=== PATIENT | male | born 1990 | race Two or more races ===

== ENCOUNTER 2019-05-15 00:23 | Observation (INO) | payer SELFPAY ==
[~2019-05-15] VITALS: Ht 167.6 cm; Wt 98.9 kg
[2019-05-15] MEDS ORDERED: methylPREDNISolone SOD SUCC PF 125 MG/2 ML VIAL. IV ONE (01:00)
[2019-05-15] MEDS ORDERED: diphenhydrAMINE 50 MG/ML VIAL IVP ONE (01:00)
[2019-05-15] MEDS ORDERED: FAMOTIDINE 20 MG/2 ML VIAL IVP ONE (01:00)
--- NOTE | 2019-05-15 01:21 | PHYS DOC ---
Past Medical History Past Medical History: No Pertinent History Past Surgical History: No Surgical History Alcohol Use: Occasionally Drug Use: Marijuana Adult General Chief Complaint Chief Complaint: FACE PROBLEM HPI HPI 28-year-old male presents to the emergency department with complaints of swelling lips. Patient states this is happened before, usually happens after eating pork. Patient subsequent had pork chop tonight and had development of angioedema appreciated to his upper and lower lips. Oral mucosa itself is unremarkable with regards to swelling, patient denies any shortness of breath, nausea, vomiting, chest pain. He does however have significant swelling appreciated to his upper lips and lower lips. Patient states he took some Claritin at home however had no relief. Review of Systems Review of Systems Constitutional: Denies fever or chills [] Eyes: Denies change in visual acuity, redness, or eye pain [] Respiratory: Denies cough or shortness of breath [] Cardiovascular: No additional information not addressed in HPI [] GI: Denies abdominal pain, nausea, vomiting, bloody stools or diarrhea [] Musculoskeletal: Denies back pain or joint pain [] Integument: Denies rash or skin lesions [] All other systems were reviewed and found to be within normal limits, except as documented in this note. Current Medications Current Medications Current Medications Medications (Trade) Dose Ordered Sig/Vicky Start Time Stop Time Status Last Admin Dose Admin Diphenhydramine HCl (Benadryl) 50 mg 1X ONCE 05/15/19 01:00 05/15/19 01:01 DC 05/15/19 00:53 50 MG Famotidine (Pepcid Vial) 20 mg 1X ONCE 05/15/19 01:00 05/15/19 01:01 DC 05/15/19 00:53 20 MG Methylprednisolone Sodium Succinate (SOLU-Medrol 125MG VIAL) 125 mg 1X ONCE 05/15/19 01:00 05/15/19 01:01 DC 05/15/19 00:52 125 MG Allergies Allergies Allergies Coded Allergies Type Severity Reaction Last Updated Verified Penicillins Allergy Intermediate 05/15/19 Yes Physical Exam Physical Exam Constitutional: Well developed, well nourished, no acute distress, non-toxic appearance. [] HENT: Normocephalic, atraumatic, bilateral external ears normal, oropharynx moist, no oropharynx swelling, obvious swelling to upper/lower lips, no oral exudates, nose normal. [] Eyes: PERRLA, EOMI, conjunctiva normal, no discharge. [] Neck: Normal range of motion, no tenderness, supple, no stridor. [] Cardiovascular:Heart rate regular rhythm, no murmur [] Lungs & Thorax: Bilateral breath sounds clear to auscultation [] Abdomen: Bowel sounds normal, soft, no tenderness, no masses, no pulsatile masses. [] Skin: Warm, dry, no erythema, no rash. [] Extremities: No tenderness, no edema. [] Neurologic: Alert and oriented X 3, no focal deficits noted. [] Psychologic: Affect normal, judgement normal, mood normal. [] Current Patient Data Vital Signs Vital Signs Date Time Temp Pulse Resp B/P (MAP) Pulse Ox O2 Delivery O2 Flow Rate FiO2 05/15/19 00:39 98.2 76 16 148/92 (110) 99 Room Air 98.2 EKG EKG [] Radiology/Procedures Radiology/Procedures [] Course & Med Decision Making Course & Med Decision Making Pertinent Labs and Imaging studies reviewed. (See chart for details) []28-year-old male presents to the emergency department with complaints of swelling lips. Patient states this is happened before, usually happens after eating pork. Patient subsequent had pork chop tonight and had development of angioedema appreciated to his upper and lower lips. Oral mucosa itself is unremarkable with regards to swelling, patient denies any shortness of breath, nausea, vomiting, chest pain. He does however have significant swelling appreciated to his upper lips and lower lips. Patient states he took some Claritin at home however had no relief. Solumedrol/pepcid/Benadryl given IV Patient with continued swelling despite medications Given concern for airway will plan for admit Discussed admit with patient and observation AM labs ordered Dragon Disclaimer Dragon Disclaimer This electronic medical record was generated, in whole or in part, using a voice recognition dictation system. Departure Departure Impression: Primary Impression: Angio-edema Disposition: ADMITTED INPATIENT Admitting Physician: SHANNAN Condition: STABLE Problem Qualifiers Primary Impression: Angio-edema Encounter type: initial encounter Qualified Codes: T78.3XXA - Angioneurotic edema, initial encounter RODOLFO CLAYTON MD May 15, 2019 01:21
[2019-05-15] MEDS ORDERED: ONDANSETRON PF 4 MG/2 ML VIAL. IV PRN (01:30)
[2019-05-15] MEDS ORDERED: ACETAMINOPHEN 325 MG TABLET. PO PRN (01:30)
[2019-05-15 07:47] VITALS: BP 133/89
[2019-05-15 10:53] VITALS: BP 129/92
[2019-05-15] MEDS: diphenhydrAMINE HCL 25 MG CAPSULE PO PRN ×2 (11:13→21:16)
[2019-05-15] MEDS: FAMOTIDINE 20 MG TABLET. PO SCH ×2 (11:13→21:14)
[2019-05-15] MEDS: methylPREDNISolone SOD SUCC PF 40 MG/ML VIAL. IV SCH ×2 (11:14→21:14)
--- NOTE | 2019-05-15 11:58 | HP ---
ADMIT DATE: 05/15/2019 CHIEF COMPLAINT: Swollen lips. HISTORY OF PRESENT ILLNESS: The patient is a pleasant 28-year-old male who thinks he is ALLERGIC TO PORK. Sure enough, he presented with angioedema. He rates this as 7/10. It is worse with food, better with no food. Has associated anxiety. This has been occurring for about a day. We placed him on steroids, Pepcid and Benadryl. He is now being examined on the medical floor where his symptoms are starting to resolve a little bit. I plan to continue the therapy. PAST MEDICAL HISTORY: None. ALLERGIES: PENICILLIN. FAMILY HISTORY: Diabetes and angioedema. SOCIAL HISTORY: Does not drink, smoke or take drugs. He is . MEDICATIONS: Reviewed. REVIEW OF SYSTEMS: GENERAL: No history of weight change, weakness or fevers. He complains of swollen lips. SKIN: No bruising, hair changes or rashes. EYES: No blurred, double or loss of vision. NOSE AND THROAT: No history of nosebleeds, hoarseness or sore throat. HEART: No history of palpitations, chest pain or shortness of breath on exertion. LUNGS: Denies cough, hemoptysis, wheezing or shortness of breath. GASTROINTESTINAL: Denies changes in appetite, nausea, vomiting, diarrhea or constipation. GENITOURINARY: No history of frequency, urgency, hesitancy or nocturia. NEUROLOGIC: Denies history of numbness, tingling, tremor or weakness. PSYCHIATRIC: No history of panic, anxiety or depression. ENDOCRINE: No history of heat or cold intolerance, polyuria or polydipsia. EXTREMITIES: Denies muscle weakness, joint pain, pain on walking or stiffness. PHYSICAL EXAMINATION: VITALS: Within normal limits and are stable. GENERAL: No apparent distress. Alert and oriented. HEENT: He has swollen lips. EYES: Extraocular muscles are intact, pupils are equally round and reactive to light and accommodation MUSCULOSKELETAL: Well developed, well nourished, good range of motion ENDOCRINE: No thyromegaly was palpated LYMPHATICS: No cervical chain or axillary nodes were noted HEMATOPOIETIC: No bruising NECK: Supple, no JVD, no thyromegaly was noted. LUNGS: Clear to auscultation in all lung bolanos without rhonchi or wheezing. HEART: RRR, S1, S2 present. Peripheral pulses intact, no obvious murmurs were noted. ABDOMEN: Soft, nontender. Positive bowel sounds no organomegaly, normal bowel sounds. EXTREMITIES: Without any cyanosis, clubbing, or edema. Pedal pulses intact, Homans sign is negative. NEUROLOGIC: Normal speech, normal tone. A & O x3, moves all extremities, no obvious focal deficits. PSYCHIATRIC: Normal affect, normal mood. Stable. SKIN: No ulcerations or rashes, good skin turgor, no jaundice. VASCULAR: Good capillary refill, neurovascular bundle appears to be intact. ASSESSMENT AND PLAN: Angioedema. We will treat with IV Solu-Medrol, IV Pepcid, IV diphenhydramine and monitor him closely. SAROJ HOBBS DO DR: ROBB/maryann JOB#: [id number] / [id number]
--- NOTE | 2019-05-15 13:00 | NUR ---
MIRIAM following for discharge planning. Discussed with RN, pt lives at home. Possible dc home today pending swelling progress. Pt is also self pay and HCFS to follow.
[2019-05-15 19:00] VITALS: BP 114/68
[2019-05-15 23:35] VITALS: BP 105/66
[2019-05-16 03:00] VITALS: BP 109/62
[2019-05-16 04:52] LABS: BASO % 0 % (0-3); EOS % 0 % (0-3); HEMATOCRIT 44.6 % (39.0-53.0); HEMOGLOBIN 15.1 g/dL (13.0-17.5); LYMPH # 1.2 x10^3/uL (1.0-4.8); LYMPH % 11 % (24-48); MEAN CORPUSCULAR HEMOGLOBIN 30 pg (25-35); MEAN CORPUSCULAR HGB CONC 34 g/dL (31-37); MEAN CORPUSCULAR VOLUME 87 fL (79-100); MONO # 0.4 x10^3/uL (0.0-1.1); MONO % 3 % (0-9); NEUT % 86 % (31-73); PLATELET COUNT 283 x10^3/uL (140-400); RED BLOOD COUNT 5.11 x10^6/uL (4.30-5.70); RED CELL DISTRIBUTION WIDTH 12.6 % (11.5-14.5); WHITE BLOOD COUNT 11.6 x10^3/uL (4.0-11.0)
[2019-05-16 05:07] LABS: ALBUMIN/GLOBULIN RATIO 0.9 (1.0-1.7); CALCIUM 9.2 mg/dL (8.5-10.1); CREATININE 0.8 mg/dL (0.7-1.3); POTASSIUM 4.1 mmol/L (3.5-5.1); TOTAL BILIRUBIN 0.3 mg/dL (0.2-1.0); TOTAL PROTEIN 8.4 g/dL (6.4-8.2)
[2019-05-16 07:00] VITALS: BP 112/77
[2019-05-16] MEDS: FAMOTIDINE 20 MG TABLET. PO SCH (09:00)
[2019-05-16] MEDS: methylPREDNISolone SOD SUCC PF 40 MG/ML VIAL. IV SCH (09:00)
--- NOTE | 2019-05-16 09:34 | PDOC ---
[facility] PROGRESS NOTE Chief Complaint Chief Complaint Swelling History of Present Illness History of Present Illness 05/16 Pt seen and examined Pt resting comfortably Swelling of the lips improved, pt wants to go home Vitals/I&O Vitals/I&O: Vital Signs Date Time Temp Pulse Resp B/P (MAP) Pulse Ox O2 Delivery O2 Flow Rate FiO2 05/16/19 07:00 98.1 79 18 112/77 (89) 94 Room Air 98.1 I & O 05/15/19 05/15/19 05/16/19 15:00 23:00 07:00 Intake Total 250 ml 750 ml 1040 ml Balance 250 ml 750 ml 1040 ml Physical Exam General: Alert, Oriented X3, Cooperative Heart: Regular rate, Normal S1, Normal S2 Lungs: Clear Abdomen: Soft, No tenderness Extremities: No clubbing, No cyanosis Skin: No rashes, No breakdown Labs Labs: Laboratory Tests Test 05/16/19 04:10 White Blood Count 11.6 x10^3/uL (4.0-11.0) Red Blood Count 5.11 x10^6/uL (4.30-5.70) Hemoglobin 15.1 g/dL (13.0-17.5) Hematocrit 44.6 % (39.0-53.0) Mean Corpuscular Volume 87 fL (79-100) Mean Corpuscular Hemoglobin 30 pg (25-35) Mean Corpuscular Hemoglobin Concent 34 g/dL (31-37) Red Cell Distribution Width 12.6 % (11.5-14.5) Platelet Count 283 x10^3/uL (140-400) Neutrophils (%) (Auto) 86 % (31-73) Lymphocytes (%) (Auto) 11 % (24-48) Monocytes (%) (Auto) 3 % (0-9) Eosinophils (%) (Auto) 0 % (0-3) Basophils (%) (Auto) 0 % (0-3) Neutrophils # (Auto) 10.0 x10^3/uL (1.8-7.7) Lymphocytes # (Auto) 1.2 x10^3/uL (1.0-4.8) Monocytes # (Auto) 0.4 x10^3/uL (0.0-1.1) Eosinophils # (Auto) 0.0 x10^3/uL (0.0-0.7) Basophils # (Auto) 0.0 x10^3/uL (0.0-0.2) Sodium Level 137 mmol/L (136-145) Potassium Level 4.1 mmol/L (3.5-5.1) Chloride Level 102 mmol/L (98-107) Carbon Dioxide Level 25 mmol/L (21-32) Anion Gap 10 (6-14) Blood Urea Nitrogen 15 mg/dL (8-26) Creatinine 0.8 mg/dL (0.7-1.3) Estimated GFR (Cockcroft-Gault) 116.0 BUN/Creatinine Ratio 19 (6-20) Glucose Level 160 mg/dL (70-99) Calcium Level 9.2 mg/dL (8.5-10.1) Total Bilirubin 0.3 mg/dL (0.2-1.0) Aspartate Amino Transf (AST/SGOT) 14 U/L (15-37) Alanine Aminotransferase (ALT/SGPT) 25 U/L (16-63) Alkaline Phosphatase 86 U/L (46-116) Total Protein 8.4 g/dL (6.4-8.2) Albumin 4.0 g/dL (3.4-5.0) Albumin/Globulin Ratio 0.9 (1.0-1.7) Review of Systems Review of Systems: No CP, SOB Assessment and Plan Assessmemt and Plan Problems Medical Problems: (1) Angio-edema Status: Acute Assessment Angioedema Plan HM PT/OT Steroids Benadryl Labs Full diet DVT prophylaxis DC home today Comment Review of Relevant I have reviewed the following items renetta (where applicable) has been applied. Medications: Current Medications Medications (Trade) Dose Ordered Sig/Vicky Route PRN Reason Start Time Stop Time Status Last Admin Dose Admin Methylprednisolone Sodium Succinate (SOLU-Medrol 40MG VIAL) 60 mg Q12HR IV 05/15/19 12:00 05/15/19 21:14 Famotidine (Pepcid) 20 mg BID PO 05/15/19 12:00 05/15/19 21:14 Diphenhydramine HCl (Benadryl) 25 mg Q8HRS PRN PO ITCHING 05/15/19 10:30 05/15/19 21:16 SAROJ HOBBS III DO May 16, 2019 09:34
[2019-05-16 11:00] VITALS: BP 108/58
[2019-05-16 12:02] LABS: % BANDS 25 % (0-9); % LYMPHS 7 % (24-48); % MONOS 3 % (0-10); % SEGS 65 % (35-66)
[2019-05-16 12:03] LABS: PLT ESTIMATE ADEQUATE (ADEQUATE)
--- NOTE | 2019-05-16 13:30 | NUR ---
Patient was discharged home. Discharge planning and prescriptions given to pt and family. IV remove by DANILO Mccarthy. Pt walked out of hospital with transportation provided by family.
--- NOTE | 2019-05-18 23:05 | DS ---
DATE OF DISCHARGE: 05/16/2019 ADMISSION DIAGNOSIS: Angioedema. DISCHARGE DIAGNOSIS: Resolving angioedema. HOSPITAL COURSE: The patient is a pleasant 28-year-old male who presented with angioedema secondary to eating pork. We gave him steroids, Benadryl and Pepcid. In 48 hours, he returned to his baseline. We discharged to home on Medrol Dosepak. DISPOSITION: Home. ACTIVITY: As tolerated. DIET: Low sodium. MEDICATIONS: Please see MRAD. TOTAL TIME: 33 minutes. SAROJ HOBBS DO DR: ROBB/maryann JOB#: [id number] / [id number]
== END 2019-05-16 12:30 | disposition home or self-care (01) ==
LOC: ER 00:23 → 6 SOUTH 01:21
PROVIDERS: ADMIT Internal Medicine; ATTEND Internal Medicine
DX: T78.3XXA Angioneurotic edema, initial encounter (principal); F41.9 Anxiety disorder, unspecified
CPT/HCPCS: 36415; 80053; 85007; 85025; 96374; 96375; 96376; 99284; G0378; J1200; J2920; J2930; J3490; Q0163; G0379

== ENCOUNTER 2021-05-15 20:15 | Emergency (ER) | payer SELFPAY ==
[~2021-05-15] VITALS: Ht 182.9 cm; Wt 100.0 kg
[2021-05-15] MEDS ORDERED: MORPHINE SULFATE 2 MG/ML INJ. IV/SQ PRN (20:45)
--- NOTE | 2021-05-15 20:53 | PHYS DOC ---
Past Medical History Past Medical History: No Pertinent History Past Surgical History: No Surgical History Smoking Status: Never Smoker Alcohol Use: Occasionally Drug Use: Marijuana General Adult EDM: Chief Complaint: BACK PAIN OR INJURY HPI: HPI: Patient is a 30 year old male with no significant medical history who presents today complaining of a sharp 7 out of 10 mid back pain radiating to his chest, symptoms began today. He states he bent down this morning to pepper picker a shirt, and heard a pop from his mid back. He states since then he has not felt normal. Denies any shortness of breath. Denies any fever. Reports pain is worse on deep breaths. He states he tried cupping with no relief to his pain. Review of Systems: Review of Systems: Constitutional: Denies fever or chills. [] Eyes: Denies change in visual acuity. [] HENT: Denies nasal congestion or sore throat. [] Respiratory: Denies cough or shortness of breath. [] Cardiovascular: Reports back pain radiating to the chest GI: Denies abdominal pain, nausea, vomiting, bloody stools or diarrhea. [] : Denies dysuria. [] Musculoskeletal: Reports mid back pain Integument: Denies rash. [] Neurologic: Denies headache, focal weakness or sensory changes. [] Psychiatric: Denies depression or anxiety. [] Heart Score: C/O Chest Pain: N/A Risk Factors: Risk Factors: DM, Current or recent (<one month) smoker, HTN, HLP, family history of CAD, obesity. Risk Scores: Score 0 - 3: 2.5% MACE over next 6 weeks - Discharge Home Score 4 - 6: 20.3% MACE over next 6 weeks - Admit for Clinical Observation Score 7 - 10: 72.7% MACE over next 6 weeks - Early Invasive Strategies Current Medications: Current Medications Medications (Trade) Dose Ordered Sig/Vicky Start Time Stop Time Status Last Admin Dose Admin Morphine Sulfate (Morphine Sulfate) 2 mg PRN Q15MIN PRN 05/15/21 20:45 05/16/21 20:44 Allergies: Allergies: Allergies Coded Allergies Type Severity Reaction Last Updated Verified Penicillins Allergy Intermediate 05/15/19 Yes Physical Exam: PE: Constitutional: Well developed, well nourished, no acute distress, non-toxic appearance. [] HENT: Normocephalic, atraumatic, bilateral external ears normal, oropharynx moist, no oral exudates, nose normal. [] Eyes: PERRLA, EOMI, conjunctiva normal, no discharge. [] Neck: Normal range of motion, no tenderness, supple, no stridor. [] Cardiovascular: heart rate regular rhythm, no murmur [] Lungs & Thorax: Bilateral breath sounds clear to auscultation [] Abdomen: Bowel sounds normal, soft, no tenderness, no masses, no pulsatile masses. [] Skin: Warm, dry, no erythema, no rash. [] Back:Cupping bruising noted on the mid back. Paraspinal muscle tenderness to posterior thoracic spine, no midline thoracic spine tenderness, no CVA tenderness. [] Extremities: No tenderness, no cyanosis, no clubbing, ROM intact, no edema. [] Neurologic: Alert and oriented X 3, normal motor function, normal sensory function, no focal deficits noted. [] Psychologic: Affect normal, judgement normal, mood normal. [] Current Patient Data: Vital Signs: Vital Signs Date Time Temp Pulse Resp B/P (MAP) Pulse Ox O2 Delivery O2 Flow Rate FiO2 05/15/21 20:22 97.2 65 14 136/96 (109) 96 Room Air 97.2 EKG: EK interpreted by Dr. Richardson sinus rhythm heart rate 63 no STEMI [] Radiology/Procedures: Radiology/Procedures: []PROCEDURE: CT ANGIOGRAPHY CHEST ABDOMEN Study: CT angiography of the chest, abdomen and pelvis Indication: Back pain. Dissection. Comparison: None. Technique: Helical CT imaging performed of the chest, abdomen and pelvis after the intravenous administration of 75 cc Omnipaque 300 contrast. Sagittal and coronal 3D MIP reconstructions were obtained. One or more of the following individualized dose reduction techniques were utilized for this examination: 1. Automated exposure control 2. Adjustment of the mA and/or kV according to patient size 3. Use of iterative reconstruction technique. Findings: Vasculature: The visualized great vessels are patent. No aortic dissection or aneurysm. No stenosis of the abdominal aortic branch vessels or iliofemoral system. Renal venous drainage both anterior and posterior to the aorta. Main pulmonary artery caliber is normal. No central pulmonary embolism. Non-vascular Findings: Chest: No significant airspace infiltrate or nodule that would warrant dedicated follow-up. No pleural effusion or pneumothorax. Patent central airways. Wispy soft tissue density at the anterior mediastinum most typical of minimal residual thymic tissue. No adenopathy. Mild gynecomastia on the right. No acute or aggressive osseous abnormality. Mild chronic endplate irregularity at a few thoracic levels. No disc space collapse. There appears to be a small central protrusion at T8-T9. Abdomen/pelvis: Unremarkable liver, gallbladder, biliary tree, pancreas, adrenal glands and spleen. Symmetric renal parenchymal enhancement. No hydronephrosis. Unremarkable bladder and prostate. Within normal limits colon, appendix, small bowel and stomach. No lymphadenopathy. No free fluid or pneumoperitoneum. No advanced degenerative changes or acute osseous abnormality. Impression: No aortic dissection or alternative acute abnormality throughout the chest, abdomen or pelvis to explain the patient's symptoms. Electronically signed by: ASIF GARCIA MD (05/15/2021 10:40 PM) [facility] DICTATED and SIGNED BY: ASIF GARCIA MD DATE: 05/15/21 [id number] Course & Med Decision Making: Course & Med Decision Making Pertinent Labs and Imaging studies reviewed. (See chart for details) This is a 30-year-old female patient presenting to the ED today with mid back pain radiating to the chest, symptoms began today after he bent down and heard a pop sound from his back. EKG is negative, labs including cardiac work-up are negative for any acute findings. Patient has normal vitals. CTA chest is negative. Discharge to home. Pain is muscle skeletal. Flexeril and naproxen provided Dragon Disclaimer: Dragon Disclaimer: This electronic medical record was generated, in whole or in part, using a voice recognition dictation system. Departure Departure Impression: Primary Impression: Acute thoracic myofascial strain Qualified Codes: S29.019A - Strain of muscle and tendon of unspecified wall of thorax, initial encounter Disposition: HOME / SELF CARE / HOMELESS Condition: STABLE Referrals: NO PCP (PCP) follow up with your doctor in one week Patient Instructions: Thoracic Strain, [id number] Additional Instructions: You were evaluated in the emergency room for thoracic strain. Your work-up in the emergency room including lab, CT of the chest abdomen and pelvis are negative for any acute findings. Follow-up with your own doctor in 1 to 2 weeks. Your pain is muscle skeletal, you likely strained your back Scripts Naproxen (NAPROXEN) 500 Mg Tablet 1 TAB PO BID for pain, #14 TAB 0 Refills Prov: ANGELLA XIE APRN 05/15/21 Cyclobenzaprine Hcl (CYCLOBENZAPRINE HCL) 10 Mg Tablet 1 TAB PO TID, #30 TAB Prov: ANGELLA XIE APRN 05/15/21 ANGELLA XIE APRN May 15, 2021 20:53
[2021-05-15 20:56] LABS: BILIRUBIN,URINE NEGATIVE (NEG); CLARITY,URINE CLEAR; COLOR,URINE YELLOW; NITRITE,URINE NEGATIVE (NEG); PROTEIN,URINE NEGATIVE (NEG-TRACE)
[2021-05-15 20:57] LABS: BASO % 0 % (0-3); EOS # 0.1 x10^3/uL (0.0-0.7); EOS % 1 % (0-3); HEMATOCRIT 45.6 % (39.0-53.0); HEMOGLOBIN 15.6 g/dL (13.0-17.5); LYMPH # 3.4 x10^3/uL (1.0-4.8); LYMPH % 34 % (24-48); MEAN CORPUSCULAR HEMOGLOBIN 30 pg (25-35); MEAN CORPUSCULAR HGB CONC 34 g/dL (31-37); MEAN CORPUSCULAR VOLUME 88 fL (79-100); MONO # 0.9 x10^3/uL (0.0-1.1); MONO % 9 % (0-9); NEUT # 5.5 x10^3/uL (1.8-7.7); NEUT % 55 % (31-73); PLATELET COUNT 266 x10^3/uL (140-400); RED BLOOD COUNT 5.19 x10^6/uL (4.30-5.70); RED CELL DISTRIBUTION WIDTH 13.3 % (11.5-14.5); WHITE BLOOD COUNT 9.9 x10^3/uL (4.0-11.0)
[2021-05-15 21:01] LABS: BACTERIA,URINE 0 /HPF (0-FEW); RBC,URINE 0 /HPF (0-2); WBC,URINE 0 /HPF (0-4)
[2021-05-15 21:03] LABS: CALCIUM 8.8 mg/dL (8.5-10.1); CREATININE 0.9 mg/dL (0.7-1.3); GFR 99.8; POTASSIUM 3.5 mmol/L (3.5-5.1)
[2021-05-15 21:04] LABS: AMPHETAMINE/METHAMPHETAMINE NEG (NEG); BARBITURATES NEG (NEG); BENZODIAZEPINES NEG (NEG); CANNABINOIDS POS (NEG); COCAINE NEG (NEG); METHADONE NEG (NEG); OPIATES NEG (NEG); PHENCYCLIDINE NEG (NEG)
[2021-05-15 21:09] LABS: ALBUMIN 4.1 g/dL (3.4-5.0); ALBUMIN/GLOBULIN RATIO 1.1 (1.0-1.7); MAGNESIUM 2.3 mg/dL (1.8-2.4); TOTAL BILIRUBIN 0.3 mg/dL (0.2-1.0)
[2021-05-15] MEDS ORDERED: CONTRAST GIVEN. MC PRN (21:15)
[2021-05-15] MEDS ORDERED: IOHEXOL 300 MG/ML 100ML VIAL. IV ONE (21:30)
[2021-05-15] MEDS ORDERED: IOHEXOL 350 MG/ML 100 ML VIAL. IV ONE (21:45)
--- NOTE | 2021-05-15 22:02 | EKG ---
[facility] [address] [place] [address] Test Date: 2021-05-15 Test Time: 20:43:49 Pat Name: JARAD DANIELLE Department: Room: Gender: M 3Rd Grade Reading Teacher: : 1990 Requested By: ANGELLA XIE Order Number: [id number] Reading MD: Say Huitron Measurements Intervals [place] Rate: 63 P: IA: QRS: -5 QRSD: 94 T: -7 QT: 384 QTc: 396 Interpretive Statements SINUS RHYTHM Electronically Signed On 05-18-2021 12:57:10 [employer] MACHINE OPERATOR HELPER by Say Huitron
--- NOTE | 2021-05-15 22:43 | RAD ---
Study: CT angiography of the chest, abdomen and pelvis Indication: Back pain. Dissection. Comparison: None. Technique: Helical CT imaging performed of the chest, abdomen and pelvis after the intravenous admini stration of 75 cc Omnipaque 300 contrast. Sagittal and coronal 3D MIP reconstructions were obtained. One or more of the following individualized dose reduction techniques were utilized for this examinat ion: 1. Automated exposure control 2. Adjustment of the mA and/or kV according to patient size 3. Use of iterative reconstruction technique. Findings: Vasculature: The visualized great vessels are patent. No aortic dissection or aneurysm. No stenosis of the abdomin al aortic branch vessels or iliofemoral system. Renal venous drainage both anterior and posterior to the aorta. Main pulmonary artery caliber is normal. No central pulmonary embolism. Non-vascular Findings: Chest: No significant airspace infiltrate or nodule that would warrant dedicated follow-up. No pleural effus ion or pneumothorax. Patent central airways. Wispy soft tissue density at the anterior mediastinum mo st typical of minimal residual thymic tissue. No adenopathy. Mild gynecomastia on the right. No acute or aggressive osseous abnormality. Mild chronic endplate irr egularity at a few thoracic levels. No disc space collapse. There appears to be a small central protr usion at T8-T9. Abdomen/pelvis: Unremarkable liver, gallbladder, biliary tree, pancreas, adrenal glands and spleen. Symmetric renal p arenchymal enhancement. No hydronephrosis. Unremarkable bladder and prostate. Within normal limits co roman, appendix, small bowel and stomach. No lymphadenopathy. No free fluid or pneumoperitoneum. No adv anced degenerative changes or acute osseous abnormality. Impression: No aortic dissection or alternative acute abnormality throughout the chest, abdomen or pelvis to expl ain the patient's symptoms. Electronically signed by: ASIF GARCIA MD (05/15/2021 10:40 PM) [facility]
[2021-05-15] MEDS ORDERED: CYCL10TA19 PO (23:21)
[2021-05-15] MEDS ORDERED: NAPR-514 PO (23:21)
[2021-05-16 00:01] VITALS: BP 129/64
== END 2021-05-16 00:04 | disposition home or self-care (01) ==
LOC: ER 20:15
DX: S29.019A Strain of muscle and tendon of unspecified wall of thorax, initial encounter (principal); X50.9XXA Other and unspecified overexertion or strenuous movements or postures, initial encounter; Y93.89 Activity, other specified; Y92.89 Other specified places as the place of occurrence of the external cause; Y99.8 Other external cause status
CPT/HCPCS: 36415; 71275; 74175; 80053; 80307; 81001; 83735; 83880; 84484; 85025; 93005; 99285; Q9967